=== PATIENT | female | born 1995 | race Caucasian/White ===

== ENCOUNTER 2018-06-30 20:27 | Inpatient (IN) | payer OTHER ==
[~2018-06-30] VITALS: Ht 177.8 cm; Wt 65.8 kg
[2018-06-30] MEDS ORDERED: PROZAC10 MG (20:41)
[2018-06-30] MEDS ORDERED: BUPROPION HCL75 MG PO (20:42)
[2018-06-30] MEDS ORDERED: ZOFRAN4 MG (20:42)
[2018-06-30] MEDS ORDERED: ZOVIRAX200 MG PO (20:42)
[2018-06-30 21:00] LABS: HEMATOCRIT 30.5 % (36.0-48.0); HEMOGLOBIN 10.2 g/dL (12-16); MCH 31.2 pg (26.0-34.0); MCHC 33.4 g/dL (31.0-37.0); MCV 93.3 fL (80.0-100.0); MEAN PLATELET VOLUME 10.6 fL (7.4-10.4); PLATELET COUNT 59 10x3/uL (130-400); RBC 3.27 10x6/uL (4.00-5.40); RDW 14.9 % (11.5-14.5); WBC 9.1 10x3/uL (4.8-10.8)
[2018-06-30 21:10] LABS: HCG SERUM NEGATIVE (NEGATIVE)
[2018-06-30 21:15] LABS: ALBUMIN 3.3 g/dL (3.4-5.0); ALKALINE PHOSPHATASE 54 U/L (46-116); ALT (SGPT) 41 U/L (10-68); AMYLASE - SERUM 31 U/L (25-115); APTT 35.5 SECONDS (22.8-39.4); BILIRUBIN - TOTAL 0.34 mg/dL (0.2-1.3); CALC OSMOLALITY 279 mosm/kg (275-300); CALCIUM 7.9 mg/dL (8.5-10.1); CARBON DIOXIDE 25.5 mmol/L (21.0-32.0); CHLORIDE - SERUM 104 mmol/L (98-107); CREATININE - SERUM 0.8 mg/dL (0.6-1.3); GLUCOSE 95 mg/dL (74-106); INR 1.12 (0.85-1.17); LIPASE 172 U/L (73-393); POTASSIUM - SERUM 3.4 mmol/L (3.5-5.1); PROTEIN - SERUM 6.4 g/dL (6.4-8.2); PROTIME 13.9 SECONDS (11.6-15.0); SODIUM 141 mmol/L (136-145); UREA NITROGEN 10 mg/dL (7-18); eGFR NON AFRICAN AMERICAN > 90 mL/min (90-120)
--- NOTE | 2018-06-30 21:32 | NUR ---
PT GIVEN WARM BLANKETS.
[2018-06-30 21:35] LABS: EOSINOPHILS 2 % (0-7); LYMPHOCYTES 68 % (15-50); NEUTROPHILS 6 % (40-80); PLATELET ESTIMATE DECREASED
[2018-06-30 21:37] LABS: PLATELET MORPHOLOGY GIANT PLTS PRESENT
[2018-06-30 21:47] VITALS: BP 105/56
[2018-06-30 22:20] LABS: APPEARANCE CLEAR (CLEAR); BILIRUBIN NEGATIVE (NEGATIVE); COLOR YELLOW (YELLOW); GLUCOSE NEGATIVE (NEGATIVE); KETONE NEGATIVE (NEGATIVE); NITRITE NEGATIVE (NEGATIVE); PROTEIN NEGATIVE (NEGATIVE); UROBILINOGEN NORMAL (NORMAL)
[2018-07-01] VITALS (7 sets, daily range): BP systolic 90–114; BP diastolic 46–78; Ht 177.8 cm; Wt 65.8 kg
[2018-07-01 07:24] LABS: ALBUMIN 2.8 g/dL (3.4-5.0); ALKALINE PHOSPHATASE 49 U/L (46-116); BILIRUBIN - TOTAL 0.26 mg/dL (0.2-1.3); CALCIUM 7.7 mg/dL (8.5-10.1); CARBON DIOXIDE 23.4 mmol/L (21.0-32.0); CHLORIDE - SERUM 108 mmol/L (98-107); CREATININE - SERUM 0.6 mg/dL (0.6-1.3); GLUCOSE 80 mg/dL (74-106); POTASSIUM - SERUM 3.5 mmol/L (3.5-5.1); PROTEIN - SERUM 5.7 g/dL (6.4-8.2); SODIUM 143 mmol/L (136-145); eGFR NON AFRICAN AMERICAN > 90 mL/min (90-120)
[2018-07-01 07:37] LABS: HEMATOCRIT 28.6 % (36.0-48.0); HEMOGLOBIN 9.5 g/dL (12-16); MCHC 33.2 g/dL (31.0-37.0); MCV 93.5 fL (80.0-100.0); MEAN PLATELET VOLUME 11.4 fL (7.4-10.4); PLATELET COUNT 56 10x3/uL (130-400); RBC 3.06 10x6/uL (4.00-5.40); RDW 15.2 % (11.5-14.5); WBC 7.9 10x3/uL (4.8-10.8)
--- NOTE | 2018-07-01 07:45 | NUR ---
ASSESSMENT COMPLETE. IV TO R AC PATENT. DENIES ANY NEEDS AT THIS TIME.
[2018-07-01 07:51] LABS: ALT (SGPT) 39 U/L (10-68); CALC OSMOLALITY 282 mosm/kg (275-300); UREA NITROGEN 10 mg/dL (7-18)
--- NOTE | 2018-07-01 08:00 | NUR ---
WANTING TO GO HOME. NOTIFIED ALEA CHAHAL APN.
--- NOTE | 2018-07-01 08:19 | NUR ---
REFUSED CHEST XRAY.
--- NOTE | 2018-07-01 08:23 | NUR ---
PT STATES DID NOT WANT CHEST X-RAY, SHE IS HERE BECAUSE OF ABD PAIN.
[2018-07-01 09:07] LABS: % SATURATION 43 % (15-55); IRON 92 ug/dl (35-150); TOTAL IRON BIND CAPACITY 211 ug/dl (260-445); UNSAT IRON BIND CAPACITY 119 ug/dl (150-375)
--- NOTE | 2018-07-01 10:00 | NUR ---
RADIOLOGY UNABLE TO DO BONE MARROW BIOPSY TODAY. ALEA CHAHAL APN NOTIFIED. SHE WILL NOTIFY DR SOLORZANO.
--- NOTE | 2018-07-01 10:40 | NUR ---
OFF FLOOR TO [facility] FOR BONE MARROW BIOPSY.
--- NOTE | 2018-07-01 10:54 | NUR ---
RETURNED TO ROOM FROM [facility] VIA BED.
--- NOTE | 2018-07-01 10:57 | NUR ---
BONE MARROW WAS CANCELED FOR NOW.
--- NOTE | 2018-07-01 11:37 | NUR ---
MORPINE GIVEN SLOW IVP FOR COMPLAINT OF ABDOMINAL PAIN. VISITING WITH FAMILY.
[2018-07-01 11:40] LABS: EOSINOPHILS 3 % (0-7); LYMPHOCYTES 49 % (15-50); MONOCYTES 19 % (2-11); NEUTROPHILS 9 % (40-80)
[2018-07-01 11:41] LABS: ANISOCYTOSIS 1+; PLATELET ESTIMATE DECREASED; SCHISTOCYTES OCC
[2018-07-01 12:30] LABS: PATH REVIEW PERIPHERAL SMEAR REVIEWED
--- NOTE | 2018-07-01 13:47 | NUR ---
ZOFRAN GIVEN FOR COMPLAINT OF NAUSEA.
[2018-07-01] MEDS ORDERED: PROZAC10 MG PO (14:03)
[2018-07-01] MEDS ORDERED: ZOFRAN4 MG PO (14:04)
--- NOTE | 2018-07-01 15:18 | NUR ---
MORPHINE GIVEN FOR COMPLAINT OF ABDOMINAL PAIN.
--- NOTE | 2018-07-01 17:28 | NUR ---
RECIEVED CALL FROM TRANSFER TEAM THAT NO BEDS ARE AVAILABLE AT THIS TIME.
--- NOTE | 2018-07-01 18:15 | NUR ---
MORPHINE GIVEN SLOW IVP FOR COMPLAINT OF ABDOMINAL PAIN. VISITORS AT BEDSIDE. DENIES ANY FURTHER NEEDS AT THIS TIME.
--- NOTE | 2018-07-01 22:58 | NUR ---
PT IS CRYING AND HYSTERICAL UPON ENTERING ROOM. PT STATES, "IM FREAKING OUT! IT GOT QUIT AND EVERYTHIG IS SINKING IN!." INTRUCTED PT TO TAKE DEEP BREATHS AND FAMILY IN ROOM TO HELP COMFORT PATIENT. CALLED DR SOLORZANO HE ORDERED PRN ATIVAN Q 6 FOR PANIC ATTACKS. BED LOW CALL LIGHT WITHIN REACH. WILL CONTINUE TO MONITOR.
--- NOTE | 2018-07-01 23:09 | NUR ---
[facility] CALLED ABOUT BED STATUS. NO BEDS AVAILABLE AT THIS TIME.
--- NOTE | 2018-07-01 23:44 | NUR ---
PT RESTING IN BED RELAXED AND COMFORTABLY. NO S/S OF DISTRESS. RR EVEN AND UNLABORED. BED LOW, FAMILY AT BEDSIDE. CALL LIGHT WITHIN REACH. WILL CONTINUE TO MONITOR.
--- NOTE | 2018-07-02 02:54 | NUR ---
ASSESSED, PT IS ASLEEP WITH EASY RESPIRATIONS AND NO SIGNS OF ANXIETYAS EARLY IN THE EVENING. THERE IS FAMILY IN THE ROOM ASLEEP IN THE CHAIR. NO DISTRESS NOTED.
[2018-07-02 04:00] VITALS: BP 117/76
--- NOTE | 2018-07-02 06:29 | NUR ---
[facility] CALLED TO INFORM US PT IS STILL MWAITING ON BED.
[2018-07-02 07:58] VITALS: BP 119/73
--- NOTE | 2018-07-02 07:59 | NUR ---
RECIEVED BEDSIDE REPORT. AM ROUNDS COMPLETED. VSS, AAOX3, NO S/S OF RR DISTRESS, RR EVEN AND UNLABORED. PT UP IN BED, FAMILY AT BEDSIDE. DENIES ANY NEED FOR COMFORT CARE AT TIME. WILL CTM. CL IN REACH, BED IN LOW, SR UP X2.
[2018-07-02 08:21] LABS: HEMATOCRIT 28.4 % (36.0-48.0); HEMOGLOBIN 9.5 g/dL (12-16); MCH 31.1 pg (26.0-34.0); MCHC 33.5 g/dL (31.0-37.0); MCV 93.1 fL (80.0-100.0); MEAN PLATELET VOLUME 10.4 fL (7.4-10.4); PLATELET COUNT 51 10x3/uL (130-400); RBC 3.05 10x6/uL (4.00-5.40); RDW 15.1 % (11.5-14.5); WBC 8.1 10x3/uL (4.8-10.8)
[2018-07-02 08:39] LABS: CALC OSMOLALITY 278 mosm/kg (275-300); CALCIUM 7.9 mg/dL (8.5-10.1); CARBON DIOXIDE 24.9 mmol/L (21.0-32.0); CHLORIDE - SERUM 107 mmol/L (98-107); CREATININE - SERUM 0.7 mg/dL (0.6-1.3); GLUCOSE 87 mg/dL (74-106); POTASSIUM - SERUM 3.5 mmol/L (3.5-5.1); SODIUM 142 mmol/L (136-145); eGFR NON AFRICAN AMERICAN > 90 mL/min (90-120)
[2018-07-02 08:41] LABS: UREA NITROGEN 5 mg/dL (7-18)
[2018-07-02] MEDS ORDERED: IBUPROFEN800 MG PO (08:54)
[2018-07-02 09:09] LABS: EOSINOPHILS 4 % (0-7); LYMPHOCYTES 44 % (15-50); MONOCYTES 9 % (2-11); NEUTROPHILS 19 % (40-80); PLATELET ESTIMATE DECREASED
[2018-07-02 09:14] LABS: FOLATE (FOLIC ACID) - SERUM 4.3 ng/mL (>3.0)
[2018-07-02 13:34] VITALS: BP 99/60
--- NOTE | 2018-07-02 15:39 | NUR ---
PT AND FAMILY MEMBER STATES PT IS HAVING A PANIC ATTACK. PRN LORAZEPAM GIVEN AT THIS TIME. HELP WITH DEEP BREATHING AND RELAXATION TECHNIQUE. PT CURRENLTY STABLE WITH MILD ANXIETY. PT STATES SHE WANT APPLE SAUCE. APPLE SAUCE GIVEN. WILL CONTINUE TO MONITOR. CL IN REACH, BED IN LOW, SR UPX2. FAMILY AT BEDSIDE.
--- NOTE | 2018-07-02 16:20 | NUR ---
JEANINE ALBARADO LEFT PT ROOM AND WAS HAVING A CONVERSATION WITH PT SISTER. PT SISTER AND FAMILY VOICED DISSATISFACTION ABOUT DC OF PT JOSE CARLOS. PT AND FAMILY MEMBER STATES THEY WILL LIKE TO LEAVE THE FACILITY SOON POSSIBLE. PUT IN A DC ORDER.
[2018-07-02] MEDS ORDERED: CARAFATE1 G PO (16:38)
[2018-07-02] MEDS ORDERED: PROTONIX40 MG PO (16:38)
--- NOTE | 2018-07-02 16:40 | NUR ---
PT IV TAKEN OUT, PT TOLERATE WELL. PT STILL AWAITING DC.
--- NOTE | 2018-07-02 18:32 | NUR ---
DC INSTRUCTION READ TO PT. PT STATES SHE WILL BE GOING TO HOME AND THEN TO [facility]. PT VERBALIZED UNDERSTANDING OF DC INSTRUCTION. ALL PT BELONGINGS SENT HOME ALONG WITH PT FAMILY. PT LEFT THE FACILITY ON A WHEELCHAIR. PT DC'D.
== END 2018-07-02 18:35 | disposition home or self-care (01) | DRG 834 ==
LOC: D.ER 20:27 → D.M3 23:30
PROVIDERS: Family Medicine; ADMIT Internal Medicine Nephrology; ATTEND Internal Medicine Nephrology
DX: C91.00 Acute lymphoblastic leukemia not having achieved remission (principal); E43 Unspecified severe protein-calorie malnutrition; F17.213 Nicotine dependence, cigarettes, with withdrawal; D69.6 Thrombocytopenia, unspecified; D50.9 Iron deficiency anemia, unspecified; E87.6 Hypokalemia; F32.9 Major depressive disorder, single episode, unspecified; F41.9 Anxiety disorder, unspecified; N94.89 Other specified conditions associated with female genital organs and menstrual cycle; K30 Functional dyspepsia; Z68.20 Body mass index [BMI] 20.0-20.9, adult